=== PATIENT | female | born 1950 | race American Indian/Alaskan Native ===

== ENCOUNTER 2018-09-02 10:09 | Outpatient (CLI) | payer MEDICARE ==
--- NOTE | 2018-09-02 12:51 | Mammography Report ---
RIGHT DIGITAL DIAGNOSTIC MAMMOGRAM : 09/02/18 10:09:00 CLINICAL: Recalled for asymmetry. COMPARISON:07/22/18 screening FINDINGS: ML, MLO spot and exaggerated CC views were performed. Partial effacement of asymmetry on the spot view. The other views are negative. Ultrasound of the left breast (including all four quadrants and the retroareolar area) was performed and demonstrated normal fibroglandular and fatty structures. No mass, cyst or shadowing. IMPRESSION: Negative Mammogram. BI-RADS CATEGORY: 1 -- Negative RECOMMENDATION: Routine mammographic screening in one year. ACR BI-RADS MAMMOGRAPHIC CODES: 0 = Needs additional imaging evaluation; 1 = Negative; 2 = Benign; 3 = Probably benign; 4 = Suspicious; 5 = Malignant; 6 = Known biopsy-proven malignancy COMMENT: 1. Dense breast tissue, i.e., adenosis, fibrocystic changes, etc., may obscure an underlying neoplasm. 2. Approximately 10% of cancers are not detected with mammography. 3. A negative mammography report should not delay biopsy if a clinically suspicious mass is present. COMMENT: Patient follow-up letters are generated via our [employer] application.
--- NOTE | 2018-09-02 12:55 | Ultrasound Report ---
RIGHT DIGITAL DIAGNOSTIC MAMMOGRAM AND RIGHT BREAST ULTRASOUND : 09/02/18 10:09:00 CLINICAL: Recalled for asymmetry. COMPARISON:07/22/18 screening FINDINGS: ML, MLO spot and exaggerated CC views were performed. Partial effacement of asymmetry on the spot view. The other views are negative. Ultrasound of the left breast (including all four quadrants and the retroareolar area) was performed and demonstrated normal fibroglandular and fatty structures. No mass, cyst or shadowing. IMPRESSION: Negative Mammogram. BI-RADS CATEGORY: 1 -- Negative RECOMMENDATION: Routine mammographic screening in one year. ACR BI-RADS MAMMOGRAPHIC CODES: 0 = Needs additional imaging evaluation; 1 = Negative; 2 = Benign; 3 = Probably benign; 4 = Suspicious; 5 = Malignant; 6 = Known biopsy-proven malignancy COMMENT: 1. Dense breast tissue, i.e., adenosis, fibrocystic changes, etc., may obscure an underlying neoplasm. 2. Approximately 10% of cancers are not detected with mammography. 3. A negative mammography report should not delay biopsy if a clinically suspicious mass is present. COMMENT: Patient follow-up letters are generated via our [employer] application.
== END 2018-09-02 10:10 | disposition home or self-care (01) ==
LOC: SPVWC 10:09
DX: R92.8 Other abnormal and inconclusive findings on diagnostic imaging of breast (principal)